=== PATIENT | female | born 1935 | race Caucasian/White ===

== ENCOUNTER → 2018-06-03 14:51 | Outpatient (CLI) | payer MEDICARE, OTHER | END | disposition home or self-care (01) | LOC: D.CT 14:51 | DX: R55 Syncope and collapse (principal) ==

== ENCOUNTER → 2021-03-04 13:19 | Outpatient (CLI) | payer MEDICARE, OTHER | END | disposition home or self-care (01) | LOC: D.MRI 13:00 | PROVIDERS: ATTEND Family Medicine | DX: M17.12 Unilateral primary osteoarthritis, left knee (principal) ==